=== PATIENT | male | born 1955 | race Caucasian/White ===

== ENCOUNTER 2022-11-09 11:53 | Outpatient (CLI) | payer MEDICARE, BC, SELFPAY ==
[2022-11-09 15:36] LABS: Chloride* 106 mmol/L (96-114); Potassium* 4.4 mmol/L (3.6-5.1); Sodium* 140 mmol/L (135-149)
[2022-11-09 15:38] LABS: Carbon Dioxide* 30 mmol/L (20-32); Cholesterol* 219 mg/dL (90-199); Creatinine* 0.8 mg/dL (0.5-1.5); Estimated Glomerular Filt Rate 97 ml/min
[2022-11-09 15:39] LABS: Blood Urea Nitrogen* 15 mg/dL (7-30); Calcium* 8.9 mg/dL (8.4-10.6); Glucose* 87 mg/dL (60-115); HDL Cholesterol* 46 mg/dL (>=40); LDL Cholesterol Calculated 147 mg/dL (<100); Triglycerides* 131 mg/dL (40-149)
[2022-11-09 16:10] LABS: PSA Diagnostic* 6.57 ng/mL (0.10-4.00)
== END 2022-11-09 11:54 | disposition home or self-care (01) ==
LOC: NFLDREF 11:54
PROVIDERS: PCP Family Medicine; Visit Provider Family Medicine
DX: D68.51 Activated protein C resistance (principal); E78.5 Hyperlipidemia, unspecified; R97.20 Elevated prostate specific antigen [PSA]; Z13.6 Encounter for screening for cardiovascular disorders
CPT/HCPCS: 80048; 80061; 84153

== ENCOUNTER 2022-11-23 09:31 | Outpatient (RCR) | payer MEDICARE, BC, SELFPAY ==
[2022-11-23 11:00] LABS: Chloride* 111 mmol/L (96-114); Potassium* 4.2 mmol/L (3.6-5.1); Sodium* 142 mmol/L (135-149)
[2022-11-23 11:02] LABS: Aspartate Amino Transferase* 27 U/L (12-35); Carbon Dioxide* 23 mmol/L (20-32); Cholesterol* 199 mg/dL (90-199); Creatinine* 0.8 mg/dL (0.5-1.5); Estimated Glomerular Filt Rate 97 ml/min
[2022-11-23 11:03] LABS: Alanine Aminotransferase* 27 U/L (4-50); Blood Urea Nitrogen* 20 mg/dL (7-30); Calcium* 8.7 mg/dL (8.4-10.6); Creatine Kinase* 101 U/L (54-186); Glucose* 103 mg/dL (60-115); HDL Cholesterol* 42 mg/dL (>=40); LDL Cholesterol Calculated 140 mg/dL (<100); Triglycerides* 86 mg/dL (40-149)
[2022-11-23 11:19] LABS: Vitamin D 25 Hydroxy* 36 ng/mL (30-80)
[2022-11-23 11:35] LABS: Hemoglobin A1C* 5.67 % (0-5.6)
[2022-11-24 19:49] LABS: CRP, High Sensitivity 1.5 mg/L (<=3.0)
== END 2023-11-08 14:35 | disposition home or self-care (01) ==
LOC: LAB 09:31
PROVIDERS: PCP Family Medicine; Visit Provider Internal Medicine Cardiovascular Disease
DX: R93.1 Abnormal findings on diagnostic imaging of heart and coronary circulation (principal); E78.5 Hyperlipidemia, unspecified; D68.51 Activated protein C resistance; Z79.01 Long term (current) use of anticoagulants; R97.20 Elevated prostate specific antigen [PSA]; I10 Essential (primary) hypertension; E66.9 Obesity, unspecified
CPT/HCPCS: 36415; 80048; 80061; 82172; 82306; 82550; 83036; 83695; 84443; 84450; 84460; 86141

== ENCOUNTER 2023-11-06 07:45 | Outpatient (CLI) | payer MEDICARE, BC, SELFPAY | END 2023-11-06 07:46 | disposition home or self-care (01) | LOC: NFLDREF 11-07 19:03 | PROVIDERS: Visit Provider Family Medicine | DX: I10 Essential (primary) hypertension (principal); R97.20 Elevated prostate specific antigen [PSA] | CPT/HCPCS: 80048; 84153 ==

== ENCOUNTER 2023-12-15 15:08 | Outpatient (CLI) | payer MEDICARE, BC, SELFPAY | END 2023-12-15 15:09 | disposition home or self-care (01) | LOC: NFLDREF 12-29 14:37 | PROVIDERS: PCP Family Medicine; Referring Provider Family Medicine; Visit Provider Family Medicine | DX: E78.5 Hyperlipidemia, unspecified (principal) | CPT/HCPCS: 80061; 84450; 84460 ==

== ENCOUNTER 2023-12-27 10:17 | Outpatient (CLI) | payer MEDICARE, BC, SELFPAY | END 2023-12-27 10:18 | disposition home or self-care (01) | LOC: NFLDREF 12:07 | PROVIDERS: PCP Family Medicine; Referring Provider Family Medicine; Visit Provider Family Medicine | DX: Z79.01 Long term (current) use of anticoagulants (principal) | CPT/HCPCS: 85610 ==

== ENCOUNTER 2025-02-25 08:06 | Outpatient (CLI) | payer MEDICARE, BC, SELFPAY | END 2025-02-25 08:07 | disposition home or self-care (01) | PROVIDERS: PCP Family Medicine; Visit Provider Family Medicine | DX: E78.2 Mixed hyperlipidemia (principal); I10 Essential (primary) hypertension; R97.20 Elevated prostate specific antigen [PSA]; Z11.59 Encounter for screening for other viral diseases; Z12.5 Encounter for screening for malignant neoplasm of prostate | CPT/HCPCS: 80053; 80061; 84153; 84154; 86803 ==

== ENCOUNTER 2025-02-27 13:43 | Outpatient (CLI) | payer MEDICARE, BC, SELFPAY ==
--- NOTE | 2025-02-27 13:45 | CRLHL7_ITS ---
For Patients: As a result of the Century Cures Act, medical imaging exams and procedure reports are released immediately into your electronic medical record. You may view this report before your referring provider. If you have questions, please contact your health care provider. INDICATION: Bilateral Lower Extremity Chronic Edema. TECHNIQUE: Venous duplex ultrasound of the bilateral lower extremities utilizing compression with machado-scale, color Doppler, and spectral Doppler imaging. COMPARISON: None FINDINGS: There is no sonographic evidence of acute deep vein thrombosis in the bilateral common femoral, deep femoral, superficial femoral, popliteal, posterior tibial, or peroneal veins. Echogenic intraluminal band seen in the distal left popliteal vein, extending to the posterior tibial and peroneal veins, with imaging findings suggestive of a sequela of a chronic deep vein thrombosis. There is no visualized superficial vein thrombosis. The soft tissues are unremarkable. IMPRESSION: 1. No acute deep vein thrombosis in the bilateral lower extremities. 2. Likely sequela of chronic deep vein thrombosis in the left popliteal, posterior tibial, and peroneal veins which shows an echogenic intraluminal band. Dictated by Berny Castro MD @ 02/27/2025 3:52:51 PM (Electronically Signed)
== END 2025-02-27 13:44 | disposition home or self-care (01) ==
LOC: US 13:47
PROVIDERS: PCP Family Medicine; Visit Provider Family Medicine
DX: R60.9 Edema, unspecified (principal)
CPT/HCPCS: 93970

== ENCOUNTER 2025-04-09 09:42 | Outpatient (CLI) | payer MEDICARE, BC, SELFPAY | END 2025-04-09 09:43 | disposition home or self-care (01) | PROVIDERS: PCP Family Medicine; Visit Provider Family Medicine | DX: I71.21 Aneurysm of the ascending aorta, without rupture (principal); I51.7 Cardiomegaly; I35.1 Nonrheumatic aortic (valve) insufficiency | CPT/HCPCS: 93306 ==

== ENCOUNTER 2025-05-23 13:20 | Outpatient (CLI) | payer MEDICARE, BC, SELFPAY | END 2025-05-23 13:21 | disposition home or self-care (01) | LOC: NFLDREF 05-28 12:52 | PROVIDERS: PCP Family Medicine; Referring Provider Family Medicine; Visit Provider Family Medicine | DX: I10 Essential (primary) hypertension (principal) | CPT/HCPCS: 80048 ==